=== PATIENT | male | born 1960 | race Caucasian/White ===

== ENCOUNTER 2016-10-03 18:36 | Emergency (ER) | payer BC ==
[~2016-10-03] VITALS: Ht 167.6 cm; Wt 80.7 kg
[2016-10-03] MEDS ORDERED: ACYCLOVIR200 MG PO (21:37)
[2016-10-03] MEDS ORDERED: ERYTHROMYC1 APPLICAT RIGHT EYE (21:41)
[2016-10-03 22:29] VITALS: BP 156/80
== END 2016-10-03 22:30 | disposition home or self-care (01) ==
LOC: EME 18:36
DX: G51.0 Bell's palsy (principal); J32.8 Other chronic sinusitis; Z82.3 Family history of stroke; F17.200 Nicotine dependence, unspecified, uncomplicated
CPT/HCPCS: 70450; 99281; 99283